=== PATIENT | male | born 2000 ===

== ENCOUNTER 2025-02-08 22:11 | Emergency (ER) | payer BC ==
[2025-02-09] MEDS: Ketorolac 30 MG/ML SDV IM ONE (00:24)
== END 2025-02-09 01:08 | disposition home or self-care (01) ==
LOC: DL.ED 22:11
DX: S32.009A Unspecified fracture of unspecified lumbar vertebra, initial encounter for closed fracture (principal); Z91.041 Radiographic dye allergy status; W11.XXXA Fall on and from ladder, initial encounter
CPT/HCPCS: 72100; 73630; 96372; 99283; J1885